=== PATIENT | female | born 1960 | race Caucasian/White ===

== ENCOUNTER → 2018-07-29 | Outpatient (CLI) | payer OTHER ==
--- NOTE | 2018-07-30 09:55 | SLEEP ---
DATE OF STUDY: 07/29/2018 SLEEP STUDY ATTENDING PHYSICIAN: Dr. Jesus Hummel. The patient is 58 years old, who weighs 355 pounds with a BMI of 54. The patient's [place] score was 12. The patient underwent split night study at [facility]. During the night study, the patient spent 439 minutes in bed and slept for 365 minutes with a sleep efficiency of 83%. Sleep latency was 3 minutes with a REM latency of 143 minutes. Overall, sleep architecture showed increased stage 1 sleep, normal stage 2 sleep, normal slow wave and reduced REM sleep. During the initial diagnostic portion of the study, the patient slept for 155 minutes. During that time, there were 5 obstructive apneas, 2 mixed and no central apneas and 42 hypopneas. The patient's apnea-hypopnea index was 19 per hour, supine index of 11 per hour and the REM index of 67 per hour. EKG monitoring revealed an average heart rate of 85 beats per minute, no sustained arrhythmias observed. PLMS were seen at the index of 1 per hour and none caused EEG arousals. Nocturnal oximetry study revealed an average oxygen saturation of 88% with lowest of 75%. A 75% of time oxygen saturation remained between 80% and 89%. The patient met the split night criteria for CPAP initiation. It was started at 5 cm water and titrated up to 18 cm of water. At the final pressure, the patient slept for 53 minutes. The patient had supine as well as REM sleep. The patient's AHI was reduced to 0 per hour and oxygen saturation remained above 88%. The patient used a small size full face mask. IMPRESSION: 1. Moderate sleep apnea-hypopnea syndrome with worsening during REM sleep. Total AHI 19 per hour with a REM AHI of 67 per hour. 2. Nocturnal hypoxia secondary to obstructive sleep apnea, but resolved with CPAP. 3. No clinically significant PLMS. RECOMMENDATIONS: 1. CPAP at 18 cm water completely eliminated the patient's sleep apnea and should be used on a nightly basis. 2. Follow up in 4-6 weeks to assess compliance with CPAP and to document clinical improvement. 3. Weight loss is strongly advised. 4. Avoid LAP WELDER depressants. 5. Cautioned regarding driving until symptoms of sleep apnea resolve with the use of CPAP. DO OSULLIVAN MD DR: REGINE/yi JOB#: [id number] / [id number] JESUS Philip MD
== END | disposition home or self-care (01) ==
LOC: SLPLAB 18:43
PROVIDERS: ATTEND Internal Medicine Critical Care Medicine
DX: G47.33 Obstructive sleep apnea (adult) (pediatric) (principal); G47.34 Idiopathic sleep related nonobstructive alveolar hypoventilation
CPT/HCPCS: 95810

== ENCOUNTER 2020-09-19 12:10 | Emergency (ER) | payer OTHER ==
[~2020-09-19] VITALS: Ht 172.7 cm; Wt 163.0 kg
[2020-09-19 12:58] LABS: BASO # 0.1 x10^3/uL (0.0-0.2); BASO % 1 % (0-3); EOS # 0.2 x10^3/uL (0.0-0.7); EOS % 2 % (0-3); HEMATOCRIT 43.3 % (36.0-47.0); HEMOGLOBIN 14.8 g/dL (12.0-15.5); LYMPH # 2.1 x10^3/uL (1.0-4.8); LYMPH % 21 % (24-48); MEAN CORPUSCULAR HEMOGLOBIN 32 pg (25-35); MEAN CORPUSCULAR HGB CONC 34 g/dL (31-37); MEAN CORPUSCULAR VOLUME 93 fL (79-100); MONO # 0.9 x10^3/uL (0.0-1.1); MONO % 9 % (0-9); NEUT # 6.9 x10^3/uL (1.8-7.7); NEUT % 67 % (31-73); PLATELET COUNT 307 x10^3/uL (140-400); RED BLOOD COUNT 4.68 x10^6/uL (3.50-5.40); RED CELL DISTRIBUTION WIDTH 14.2 % (11.5-14.5); WHITE BLOOD COUNT 10.2 x10^3/uL (4.0-11.0)
[2020-09-19 13:07] LABS: CALCIUM 9.2 mg/dL (8.5-10.1); GFR 56.4; POTASSIUM 4.3 mmol/L (3.5-5.1)
[2020-09-19 13:12] LABS: ALBUMIN 3.8 g/dL (3.4-5.0); ALBUMIN/GLOBULIN RATIO 1.2 (1.0-1.7); TOTAL BILIRUBIN 0.4 mg/dL (0.2-1.0); TOTAL PROTEIN 7.1 g/dL (6.4-8.2)
--- NOTE | 2020-09-19 13:12 | RAD ---
Site ID: [id number] EXAMINATION: CT HEAD/BRAIN WO. TECHNIQUE: Noncontrast axial images of the brain were obtained with coronal and sagittal reconstructi ons. One or more of the following radiation dose reduction techniques was used: automated exposure control , adjustment of mA and/or KV according to patient size, and/or utilization of iterative reconstructio n technique. HISTORY: 60 years Female Reason: double vision, walking leaning to the right side since last Saturday / . Instructions: / History: . . FINDINGS: There is no intracranial hemorrhage, edema or mass effect. There is asymmetric hypodense ar ea at the base of the basal ganglia on the right side probably representing Virchow-Chu space. The brain parenchyma appears unremarkable otherwise. No hydrocephalus. The visualized portions of the orbits and paranasal sinuses appear unremarkable. IMPRESSION: No definite abnormality. No intracranial hemorrhage. Electronically signed by: Tadeo De Guzman MD (09/19/2020 1:10 PM) [id number]
[2020-09-19 13:58] LABS: BILIRUBIN,URINE NEGATIVE (NEG); CLARITY,URINE CLEAR; COLOR,URINE YELLOW; NITRITE,URINE NEGATIVE (NEG); PROTEIN,URINE NEGATIVE (NEG-TRACE); UROBILINOGEN,URINE 0.2 mg/dL (0.2 mg/dL)
[2020-09-19 14:08] LABS: BACTERIA,URINE 0 /HPF (0-FEW); RBC,URINE OCC /HPF (0-2); WBC,URINE OCC /HPF (0-4)
--- NOTE | 2020-09-19 14:13 | PHYS DOC ---
Past Medical History Past Medical History: Anemia, Asthma, COPD, Diabetes-Type II, High Cholesterol, Hypertension, Hypothyroid, Lung Disease Additional Past Medical Histor: CATARACTS, GRAVES DISEASE, UTERINE CANCER Past Surgical History: Hysterectomy, Oophorectomy Smoking Status: Never Smoker Alcohol Use: None General Adult EDM: Chief Complaint: NEURO SYMPTOMS/DEFICITS HPI: HPI: Patient is a 60 year old female who presented to the ER today due to blurry vision in her eyes since 09/16/20. Patient had history of cataract surgery with cornea implanted. She went to see her eye doctor on 09/17/20 and per patient, her eye doctor said everything checked ok with her eyes, no acute finding. Patient then went to see her cornea transpant eye doctor today at [facility]. They checked her eyes and told her that there is no acute finding. Patient said she whenever she was walking she tended to lean to the right side. She denied any headache, no neck pain, no weakness or numbness anywhere. NO slurred speech. Review of Systems: Review of Systems: Constitutional: Denies fever or chills. [] Eyes: Positive for blurry vision. HENT: Denies nasal congestion or sore throat. [] Respiratory: Denies cough or shortness of breath. [] Cardiovascular: Denies chest pain or edema. [] GI: Denies abdominal pain, nausea, vomiting, bloody stools or diarrhea. [] : Denies dysuria. [] Musculoskeletal: Denies back pain or joint pain. [] Integument: Denies rash. [] Neurologic: Denies headache, focal weakness or sensory changes. [] Endocrine: Denies polyuria or polydipsia. [] Lymphatic: Denies swollen glands. [] Psychiatric: Denies depression or anxiety. [] Heart Score: C/O Chest Pain: N/A Risk Factors: Risk Factors: DM, Current or recent (<one month) smoker, HTN, HLP, family history of CAD, obesity. Risk Scores: Score 0 - 3: 2.5% MACE over next 6 weeks - Discharge Home Score 4 - 6: 20.3% MACE over next 6 weeks - Admit for Clinical Observation Score 7 - 10: 72.7% MACE over next 6 weeks - Early Invasive Strategies Allergies: Allergies: Allergies Coded Allergies Type Severity Reaction Last Updated Verified No Known Drug Allergies 09/19/20 No Physical Exam: PE: Constitutional: Well developed, well nourished, no acute distress, non-toxic appearance. [] HENT: Normocephalic, atraumatic, bilateral external ears normal, oropharynx moist, no oral exudates, nose normal. [] Eyes: PERRLA, EOMI, conjunctiva normal, no discharge. [] Neck: Normal range of motion, no tenderness, supple, no stridor. [] Cardiovascular:Heart rate regular rhythm, no murmur [] Lungs & Thorax: Bilateral breath sounds clear to auscultation [] Abdomen: Bowel sounds normal, soft, no tenderness, no masses, no pulsatile masses. [] Skin: Warm, dry, no erythema, no rash. [] Back: No tenderness, no CVA tenderness. [] Extremities: No tenderness, no cyanosis, no clubbing, ROM intact, no edema. [] Neurologic: Alert and oriented X 3, normal motor function, normal sensory function, no focal deficits noted. [] Psychologic: Affect normal, judgement normal, mood normal. [] Current Patient Data: Labs: Laboratory Tests Test 09/19/20 12:47 09/19/20 13:43 White Blood Count 10.2 x10^3/uL (4.0-11.0) Red Blood Count 4.68 x10^6/uL (3.50-5.40) Hemoglobin 14.8 g/dL (12.0-15.5) Hematocrit 43.3 % (36.0-47.0) Mean Corpuscular Volume 93 fL (79-100) Mean Corpuscular Hemoglobin 32 pg (25-35) Mean Corpuscular Hemoglobin Concent 34 g/dL (31-37) Red Cell Distribution Width 14.2 % (11.5-14.5) Platelet Count 307 x10^3/uL (140-400) Neutrophils (%) (Auto) 67 % (31-73) Lymphocytes (%) (Auto) 21 % (24-48) L Monocytes (%) (Auto) 9 % (0-9) Eosinophils (%) (Auto) 2 % (0-3) Basophils (%) (Auto) 1 % (0-3) Neutrophils # (Auto) 6.9 x10^3/uL (1.8-7.7) Lymphocytes # (Auto) 2.1 x10^3/uL (1.0-4.8) Monocytes # (Auto) 0.9 x10^3/uL (0.0-1.1) Eosinophils # (Auto) 0.2 x10^3/uL (0.0-0.7) Basophils # (Auto) 0.1 x10^3/uL (0.0-0.2) Sodium Level 145 mmol/L (136-145) Potassium Level 4.3 mmol/L (3.5-5.1) Chloride Level 106 mmol/L (98-107) Carbon Dioxide Level 32 mmol/L (21-32) Anion Gap 7 (6-14) Blood Urea Nitrogen 16 mg/dL (7-20) Creatinine 1.0 mg/dL (0.6-1.0) Estimated GFR (Cockcroft-Gault) 56.4 BUN/Creatinine Ratio 16 (6-20) Glucose Level 169 mg/dL (70-99) H Calcium Level 9.2 mg/dL (8.5-10.1) Magnesium Level 2.0 mg/dL (1.8-2.4) Total Bilirubin 0.4 mg/dL (0.2-1.0) Aspartate Amino Transferase (AST) 43 U/L (15-37) H Alanine Aminotransferase (ALT) 54 U/L (14-59) Alkaline Phosphatase 67 U/L (46-116) Troponin I Quantitative < 0.017 ng/mL (0.000-0.055) Total Protein 7.1 g/dL (6.4-8.2) Albumin 3.8 g/dL (3.4-5.0) Albumin/Globulin Ratio 1.2 (1.0-1.7) Lipase 111 U/L (73-393) Urine Collection Type Unknown Urine Color Yellow Urine Clarity Clear Urine pH 6.0 (<5.0-8.0) Urine Specific [place] 1.015 (1.000-1.030) Urine Protein Negative mg/dL (NEG-TRACE) Urine Glucose (UA) >=1000 mg/dL (NEG) Urine Ketones (Stick) Negative mg/dL (NEG) Urine Blood Negative (NEG) Urine Nitrite Negative (NEG) Urine Bilirubin Negative (NEG) Urine Urobilinogen Dipstick 0.2 mg/dL (0.2 mg/dL) Urine Leukocyte Esterase Negative (NEG) Urine RBC Occ /HPF (0-2) Urine WBC Occ /HPF (0-4) Urine Squamous Epithelial Cells Few /LPF Urine Bacteria 0 /HPF (0-FEW) Laboratory Tests 09/19/20 12:47 Laboratory Tests 09/19/20 12:47 Vital Signs: Vital Signs Date Time Temp Pulse Resp B/P (MAP) Pulse Ox O2 Delivery O2 Flow Rate FiO2 09/19/20 12:25 65 12 178/75 (109) 98 Room Air EKG: EKG: EKG was done at 1241, heart rate of 68 bpm, sinus rhythm, left axis deviation, no ST segment elevation. Radiology/Procedures: Radiology/Procedures: [][facility] [address] [place] [address] IMAGING REPORT Signed PATIENT: CHRIS RICARDO ACCOUNT: [id number] : 1960 LOCATION: ER AGE: 60 SEX: F EXAM STATUS: REG ER ORD. PHYSICIAN: ADRIAN FISHMAN DO REASON: double vision, walking leaning to the right side since last Saturday PROCEDURE: CT HEAD WO CONTRAST Site ID: [id number] EXAMINATION: CT HEAD/BRAIN WO. TECHNIQUE: Noncontrast axial images of the brain were obtained with coronal and sagittal reconstructions. One or more of the following radiation dose reduction techniques was used: automated exposure control, adjustment of mA and/or KV according to patient s ize, and/or utilization of iterative reconstruction technique. HISTORY: 60 years Female Reason: double vision, walking leaning to the right side since last Saturday / [facility]. Instructions: / History: . . FINDINGS: There is no intracranial hemorrhage, edema or mass effect. There is asymmetric hypodense area at the base of the basal ganglia on the right side probably representing Virchow-Chu space. The brain parenchyma appears unremarkable otherwise. No hydrocephalus. The visualized portions of the orbits and paranasal sinuses appear unremarkable. IMPRESSION: No definite abnormality. No intracranial hemorrhage. Electronically signed by: Dulce De Guzman MD (09/19/2020 1:10 PM) [id number] DICTATED and SIGNED BY: DULCE DE GUZMAN MD DATE: 09/19/20 [id number] [facility] [address] [place] [address] IMAGING REPORT Signed PATIENT: CHRIS RICARDO ACCOUNT: [id number] : 1960 LOCATION: ER AGE: 60 SEX: F EXAM STATUS: REG ER ORD. PHYSICIAN: ADRIAN FISHMAN DO REASON: DOUBLE VISION, LEANING TO THE RIGHT SIDE WHEN WALKED PROCEDURE: CT ANGIOGRAPHY HEAD AND NECK EXAM: CT angiogram of the head and neck. HISTORY: Leaning to the right. Diplopia. TECHNIQUE: Computed tomographic images of the head and neck were obtained following the administration of intravenous contrast. 3-dimensional images were obtained. *One or more of the following individualized dose reduction techniques were utilized for this examination: 1. Automated exposure control. 2. Adjustment of the mA and/or kV according to patient size. 3. Use of iterative reconstruction technique. COMPARISON: Noncontrast head CT obtained on the same date.. FINDINGS: The visualized aortic arch is normal in caliber. There is mild partially calcified atherosclerotic plaque involving the arch and arch great vessels. There is a standard aortic arch branching pattern. There is no evidence of hemodynamically significant stenosis at the origins of the arch great vessels. The right vertebral artery slightly hypoplastic, a normal variant. There is medial deviation of the carotid bifurcations, also a normal variant. There is no evidence of hemodynamically significant stenosis involving the c arotid bifurcations. There is partially calcified atherosclerotic plaque involving the cavernous and supraclinoid internal carotid arteries, resulting in less than 50 percent stenosis. The anterior communicating artery is patent. The right posterior communicating artery is patent with a hypoplastic P1 segment or there is a right posterior cerebral artery, a normal variant. The left posterior communicating artery is likely developmental or absent. The distal right vertebral artery is hypoplastic. The basilar artery is widely patent. No suspicious enhancing lesion is seen. There is no mass effect or midline shift. There is no hydrocephalus. There is evidence of lens surgery. The paranas al sinuses and mastoid air cells are clear. There is no neck lymphadenopathy. There is calcification involving the right thyroid lobe. No nodule is seen. The lung apices are unremarkable. There is degenerative change involving the cervical spine. There is no acute or suspicious osseous finding. IMPRESSION: 1. No evidence of severe stenosis or arterial occlusion. 2. Normal cerebral vascular anatomic variants, including a hypoplastic distal right vertebral artery. 3. No acute intracranial finding. Note is made that MRI is more sensitive for acute infarction. PQRS Compliance Statement - Stenosis calculations for CT, MR and conventional angiography are based upon measurement of the distal ICA diameter in accordance with the NASCET methodology. Stenosis calculations for carotid ultrasound s tudies are derived from validated velocity criteria which are known to correlate with the NASCET methodology. Electronically signed by: Jaclyn Boudreaux MD (09/19/2020 3:19 PM) [id number] DICTATED and SIGNED BY: JACLYN BOUDREAUX MD DATE: 09/19/20 [id number] 0 Course & Med Decision Making: Course & Med Decision Making Pertinent Labs and Imaging studies reviewed. (See chart for details) Patient is a 60-year-old female who presented to ER due to blurry vision and leaning to the right side when she walked. Symptoms have been going on since Saturday. CT scan her head and CTA of her head and neck did not show any large vessel occlusion or any acute problem. Discussed with Neurologist breed to wean production technician, Dr. SHEPARD who recommended to discharge patient home, then need to get MRI of her brain in the outpatient setting. Discussed wtih Dr. Hummel, patient's PCP, who agreed to see patient in clinic tomorrow and will arrange for MRI of her brain tomorrow. Patient had no neurological deficit in the ER we will discharge her home, she will need to follow-up with her doctor tomorrow as discussed. Patient is amenable to plan of care. Dragon Disclaimer: Dragon Disclaimer: This electronic medical record was generated, in whole or in part, using a voice recognition dictation system. Departure Departure Impression: Primary Impression: Blurred vision, bilateral Disposition: HOME / SELF CARE / HOMELESS Condition: STABLE Referrals: JESUS HUMMEL MD (PCP) Please follow up with your doctor tomorrow for outpatient MRI of your brain. Patient Instructions: Eye - Blurred Vision Additional Instructions: Thank you for visiting our Emergency Department. We appreciate you trusting us with your care. If any additional problems come up don't hesitate to return to visit us. Please follow up with your primary care provider so they can plan additional care if needed and know about the problem that you had. If symptoms worsen come back to the Emergency Department. Any concerning symptoms that start such as chest pain, shortness of air, weakness or numbness on one side of the body, running high fevers or any other concerning symptoms return to the ER. ADRIAN FISHMAN DO September 19, 2020 14:13
[2020-09-19] MEDS ORDERED: CONTRAST GIVEN. MC PRN (14:45)
[2020-09-19] MEDS ORDERED: IOHEXOL 300 MG/ML 100ML VIAL. IV ONE (14:45)
--- NOTE | 2020-09-19 15:22 | RAD ---
EXAM: CT angiogram of the head and neck. HISTORY: Leaning to the right. Diplopia. TECHNIQUE: Computed tomographic images of the head and neck were obtained following the administratio n of intravenous contrast. 3-dimensional images were obtained. *One or more of the following individualized dose reduction techniques were utilized for this examina tion: 1. Automated exposure control. 2. Adjustment of the mA and/or kV according to patient size. 3. Use of iterative reconstruction technique. COMPARISON: Noncontrast head CT obtained on the same date.. FINDINGS: The visualized aortic arch is normal in caliber. There is mild partially calcified atherosc lerotic plaque involving the arch and arch great vessels. There is a standard aortic arch branching p attern. There is no evidence of hemodynamically significant stenosis at the origins of the arch great vessels. The right vertebral artery slightly hypoplastic, a normal variant. There is medial deviation of the carotid bifurcations, also a normal variant. There is no evidence of hemodynamically significant stenosis involving the carotid bifurcations. There is partially calcifie d atherosclerotic plaque involving the cavernous and supraclinoid internal carotid arteries, resultin g in less than 50 percent stenosis. The anterior communicating artery is patent. The right posterior communicating artery is patent with a hypoplastic P1 segment or there is a right posterior cere bral artery, a normal variant. The left posterior communicating artery is likely developmental or abs ent. The distal right vertebral artery is hypoplastic. The basilar artery is widely patent. No suspicious enhancing lesion is seen. There is no mass effect or midline shift. There is no hydroce phalus. There is evidence of lens surgery. The paranasal sinuses and mastoid air cells are clear. The re is no neck lymphadenopathy. There is calcification involving the right thyroid lobe. No nodule is seen. The lung apices are unremarkable. There is degenerative change involving the cervical spine. Th ere is no acute or suspicious osseous finding. IMPRESSION: 1. No evidence of severe stenosis or arterial occlusion. 2. Normal cerebral vascular anatomic variants, including a hypoplastic distal right vertebral artery. 3. No acute intracranial finding. Note is made that MRI is more sensitive for acute infarction. PQRS Compliance Statement - Stenosis calculations for CT, MR and conventional angiography are based u jeaneth measurement of the distal ICA diameter in accordance with the NASCET methodology. Stenosis calcu lations for carotid ultrasound studies are derived from validated velocity criteria which are known t o correlate with the NASCET methodology. Electronically signed by: Jaclyn Ansari MD (09/19/2020 3:19 PM) [id number]
[2020-09-19 15:30] VITALS: BP 157/68
--- NOTE | 2020-09-19 16:21 | EKG ---
[facility] [address] [place] [address] Test Date: 2020-09-19 Test Time: 12:41:18 Pat Name: CHRIS RICARDO Department: Room: Gender: F Manager Intermediate: : 1960 Requested By: ADRIAN FISHMAN Order Number: [id number] Reading MD: Measurements Intervals [place] Rate: 68 P: 58 [place]: 190 QRS: -24 QRSD: 84 T: 53 QT: 382 QTc: 406 Interpretive Statements SINUS RHYTHM LEFTWARD AXIS QRS(T) CONTOUR ABNORMALITY CONSISTENT WITH ANTEROSEPTAL INFARCT PROBABLY OLD ABNORMAL ECG RI6.02 No previous ECG available for comparison
== END 2020-09-19 16:10 | disposition home or self-care (01) ==
LOC: ER 12:10
DX: H53.8 Other visual disturbances (principal); J44.9 Chronic obstructive pulmonary disease, unspecified; E11.9 Type 2 diabetes mellitus without complications; I10 Essential (primary) hypertension; E78.00 Pure hypercholesterolemia, unspecified; Z90.710 Acquired absence of both cervix and uterus; Z90.89 Acquired absence of other organs
CPT/HCPCS: 36415; 70450; 70496; 70498; 80053; 81001; 83690; 83735; 84484; 85025; 93005; 99285-25

== ENCOUNTER → 2020-09-20 | Outpatient (CLI) | payer OTHER ==
[2020-09-19 15:30] VITALS: BP 157/68
--- NOTE | 2020-09-20 16:04 | CARD ---
MR#: [id number] Date of Study: 09/20/2020 Ordering Physician: JESUS SUMMERS, Referring Physician: JESUS SUMMERS, Guerline: RIKI LENZ [facility] APPROVED REPORT EXAM: Two-dimensional and M-mode echocardiogram with Doppler and color Doppler. Other Information Quality : AverageHR: 75bpm Rhythm : NSR INDICATION Double vision 2D DIMENSIONS RVDd1.7 (2.9-3.5cm)Left Atrium(2D)3.7 (1.6-4.0cm) IVSd1.2 (0.7-1.1cm)Aortic Root(2D)3.4 (2.0-3.7cm) LVDd4.5 (3.9-5.9cm)LVOT Diameter2.2 (1.8-2.4cm) PWd1.1 (0.7-1.1cm)LVDs2.8 (2.5-4.0cm) FS (%) 38.4 %SV64.8 ml LVEF(%)68.7 (>50%) Aortic Valve AoV Peak Bubba.302.8cm/sAoV VTI66.3cm AO Peak GR.36.7mmHgLVOT Peak Bubba.149.6cm/s AO Mean GR.23mmHgAVA (VMAX)1.82cm2 Mitral Valve MV E Mnzpofzc83.1cm/sMV DECEL CZOF056rh MV A Sfphhdpe42.1cm/sE/A Ratio1.1 Pulmonary Valve PV Peak Cawzpmbp874.4cm/s Pulmonary Vein S1 Wnfnkkjm37.8cm/sD2 Tlqnletk14.1cm/s PVa hifqtisb06qyqb LEFT VENTRICLE The left ventricle is normal size. There is mild concentric left ventricular hypertrophy. The left ve ntricular systolic function is normal. The ejection fraction is 60-65%. No regional wall motion abnor malities noted. Transmitral Doppler flow pattern is Grade II-pseudonormal filling dynamics. No left v entricle thrombus noted on this study. There is no ventricular septal defect visualized. There is no left ventricular aneurysm. There is no mass noted in the left ventricle. RIGHT VENTRICLE The right ventricle is normal size. There is normal right ventricular wall thickness. The right ventr icular systolic function is normal. ATRIA The left atrium size is normal. The right atrium size is normal. The interatrial septum is intact wit h no evidence for an atrial septal defect or patent foramen ovale as noted on 2-D or Doppler imaging. AORTIC VALVE The aortic valve is normal in structure and function. No aortic regurgitation is present. There is no aortic valvular stenosis. There is no aortic valvular vegetation. MITRAL VALVE The mitral valve is normal in structure and function. There is no evidence of mitral valve prolapse. There is no mitral valve stenosis. There is no mitral valve regurgitation noted. TRICUSPID VALVE The tricuspid valve is normal in structure and function. Doppler and Color Flow revealed trace tricus pid regurgitation. There is no tricuspid valve prolapse or vegetation. There is no tricuspid valve st enosis. PULMONIC VALVE The pulmonary valve is normal in structure and function. Doppler and Color Flow revealed no pulmonic valvular regurgitation. There is no pulmonic valvular stenosis. GREAT VESSELS The aortic root is normal in size. The ascending aorta is normal in size. The pulmonary artery is nor mal. The IVC is normal in size and collapses >50% with inspiration. PERICARDIAL EFFUSION There is no pleural effusion. There is no evidence of significant pericardial effusion. Critical Notification Critical Value: No <Conclusion> The left ventricular systolic function is normal. The ejection fraction is 60-65%. No regional wall motion abnormalities noted. Trace tricuspid regurgitation. There is no evidence of significant pericardial effusion. Signed by : Alvin Hamilton, Electronically Approved : 09/20/2020 16:03:33
== END ==
LOC: ECHO 12:55
PROVIDERS: ATTEND Internal Medicine
DX: I63.40 Cerebral infarction due to embolism of unspecified cerebral artery (principal); I10 Essential (primary) hypertension; I51.7 Cardiomegaly
CPT/HCPCS: 93306

== ENCOUNTER → 2020-09-23 | Outpatient (CLI) | payer OTHER ==
[2020-09-19 15:30] VITALS: BP 157/68
--- NOTE | 2020-09-23 09:25 | RAD ---
EXAM: Brain MRI without contrast. HISTORY: Acute stroke. Visual disturbance. Ataxia. TECHNIQUE: Multiplanar, multisequence magnetic resonance imaging of the brain was performed without c ontrast. COMPARISON: CT dated 09/19/2020. FINDINGS: There is no restricted diffusion to suggest acute or subacute infarction. There is no susce ptibility effect to suggest hemorrhage. There is no mass effect or midline shift. There is no hydroce phalus. There are a few scattered foci of signal change within the cerebral white matter. There is evidence o f lens surgery. The paranasal sinuses are unremarkable. There is a small amount of left mastoid fluid . There are normal flow voids within the cerebral vessels. There is an incidental right choroid fissu re cyst. IMPRESSION: 1. No acute intracranial finding. 2. Scattered foci of signal change within the cerebral white matter, most commonly due to chronic sma ll vessel disease in patients of this age. Electronically signed by: Jaclyn Ansari MD (09/23/2020 9:23 AM) [id number]
== END ==
LOC: MRI 08:09
PROVIDERS: ATTEND Internal Medicine
DX: I63.89 Other cerebral infarction (principal); R27.0 Ataxia, unspecified; H53.9 Unspecified visual disturbance
CPT/HCPCS: 70551

== ENCOUNTER → 2021-03-08 | Outpatient (CLI) | payer OTHER | LOC: PF 07:57 | PROVIDERS: ATTEND Anesthesiology Pain Medicine | DX: Z02.71 Encounter for disability determination (principal); R09.02 Hypoxemia | CPT/HCPCS: 94060; 94640; 94664 ==